=== PATIENT | male | born 1950 | race Caucasian/White ===

== ENCOUNTER 2016-08-19 10:26 | Day surgery (SDC) | payer OTHER ==
[2016-08-19] MEDS ORDERED: METOPROLOL TARTRATE 5 MG/5 ML INJ ONE (10:59)
[2016-08-19] MEDS ORDERED: METOPROLOL TARTRATE 5 MG/5 ML INJ IVP ONE (11:00)
--- NOTE | 2016-08-19 11:09 | CPEKG ---
Heart Rate: 57 RR Interval: 1053 P-R Interval: 180 QRSD Interval: 152 QT Interval: 480 QTC Interval: 468 P [place]: 56 QRS [place]: -30 T Wave [place]: 43 EKG Severity - ABNORMAL ECG - EKG Impression: SINUS RHYTHM EKG Impression: LEFT BUNDLE BRANCH BLOCK Electronically Signed By: Addy Almazan 19-Aug-2016 14:18:28
== END 2016-08-19 13:00 | disposition home or self-care (01) ==
LOC: FCATH 10:26
PROVIDERS: ATTEND Internal Medicine Cardiovascular Disease
DX: R00.1 Bradycardia, unspecified (principal)

== ENCOUNTER 2018-01-26 08:51 | Emergency (ER) | payer OTHER ==
[2018-01-26] MEDS ORDERED: LET GEL TOPICAL 1 EA SYR TP ONE ×2 (09:12→09:25)
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
--- NOTE | 2018-01-26 09:21 | CPEKG ---
Heart Rate: 86 RR Interval: 698 P-R Interval: 176 QRSD Interval: 154 QT Interval: 412 QTC Interval: 493 P [place]: 48 QRS [place]: -17 T Wave [place]: 83 EKG Severity - ABNORMAL ECG - EKG Impression: SINUS RHYTHM EKG Impression: PROBABLE LEFT ATRIAL ABNORMALITY EKG Impression: LEFT BUNDLE BRANCH BLOCK Electronically Signed By: Ollie Rdz 28-Jan-2018 12:10:39
[2018-01-26] MEDS ORDERED: TDAP ADULT 0.5 ML INJ (BOOSTRIX) IM ONE (09:29)
[2018-01-26 09:55] LABS: PLATELET COUNT 118 10^3/uL (150-400)
[2018-01-26 10:17] VITALS: BP 156/90
[2018-01-26] MEDS ORDERED: SKIN ADHESIVE (DERMABOND) 1 EACH TP ONE ×2 (10:18→10:19)
== END 2018-01-26 11:04 | disposition home or self-care (01) ==
PROC: 08QPXZZ Repair Left Upper Eyelid, External Approach (ICD-10-PCS; principal; 2018-01-26)
DX: S01.112A Laceration without foreign body of left eyelid and periocular area, initial encounter (principal); S60.512A Abrasion of left hand, initial encounter; S80.212A Abrasion, left knee, initial encounter; I10 Essential (primary) hypertension; Z23 Encounter for immunization; V17.4XXA Pedal cycle driver injured in collision with fixed or stationary object in traffic accident, initial encounter; Y92.410 Unspecified street and highway as the place of occurrence of the external cause; Y99.8 Other external cause status; Y93.89 Activity, other specified
CPT/HCPCS: G0480